=== PATIENT | female | born 1965 | race Asian ===

== ENCOUNTER → 2024-02-29 15:16 | Outpatient (REF) | payer OTHER, SELFPAY | LOC: WDC 15:16 | PROVIDERS: ATTENDING PHYSICIAN Emergency Medicine; REFERRING PHYSICIAN Student in an Organized Health Care Education/Training Program | DX: Z12.31 Encounter for screening mammogram for malignant neoplasm of breast (principal); M79.671 Pain in right foot; M79.642 Pain in left hand | CPT/HCPCS: 73110; 73130; 73630 ==